=== PATIENT | female | born 1985 | race Two or more races ===

== ENCOUNTER 2020-01-23 08:07 | Inpatient (IN) | payer OTHER ==
[~2020-01-23] VITALS: Ht 165.1 cm; Wt 89.8 kg
[~2020-01-23 08:07] MED LIST: CALCIO DEL MAR500 MG PO; FOLIC ACID0.4 MG PO; PRENATAL1 TAB PO
[2020-01-25] MEDS ORDERED: Tylenol #3 PO (09:17)
== END 2020-01-25 11:35 | disposition home or self-care (01) | DRG 807 ==
LOC: OB/GYN 08:07 → LDR 08:07 → OB/GYN 20:34
PROVIDERS: ADMIT Obstetrics & Gynecology
PROC: 10E0XZZ Delivery of Products of Conception, External Approach (ICD-10-PCS; principal; 2020-01-23)
PROC: 0KQM0ZZ Repair Perineum Muscle, Open Approach (ICD-10-PCS; 2020-01-23)
PROC: 3E033VJ Introduction of Other Hormone into Peripheral Vein, Percutaneous Approach (ICD-10-PCS; 2020-01-23)
PROC: 4A1HXFZ Monitoring of Products of Conception, Cardiac Rhythm, External Approach (ICD-10-PCS; 2020-01-23)
PROC: 10907ZC Drainage of Amniotic Fluid, Therapeutic from Products of Conception, Via Natural or Artificial Opening (ICD-10-PCS; 2020-01-23)
DX: O70.1 Second degree perineal laceration during delivery (principal); Z37.0 Single live birth; Z3A.38 38 weeks gestation of pregnancy